=== PATIENT | male | born 1945 | race Caucasian/White ===

== ENCOUNTER 2019-12-07 16:31 | Emergency (ER) | payer OTHER ==
[~2019-12-07] VITALS: Ht 180.3 cm; Wt 95.5 kg
[2019-12-07 16:34] VITALS: Ht 180.3 cm; Wt 95.5 kg
[2019-12-07 18:43] VITALS: BP 128/54
== END 2019-12-07 18:44 | disposition home or self-care (01) ==
LOC: D.ER 16:31
DX: R51 Headache (principal); M54.2 Cervicalgia; M25.512 Pain in left shoulder; M25.511 Pain in right shoulder; V89.2XXA Person injured in unspecified motor-vehicle accident, traffic, initial encounter; Y93.9 Activity, unspecified; Y92.9 Unspecified place or not applicable